=== PATIENT | male | born 2000 | race Caucasian/White ===

== ENCOUNTER 2020-07-02 16:29 | Outpatient (CLI) | payer OTHER | END 2020-07-02 16:30 | disposition home or self-care (01) | LOC: BICRAD 16:29 | PROVIDERS: ATTEND Specialist | DX: S99.921A Unspecified injury of right foot, initial encounter (principal) ==

== ENCOUNTER 2020-08-19 08:40 | Outpatient (CLI) | payer OTHER | END 2020-08-19 08:41 | disposition home or self-care (01) | LOC: BICRAD 08:40 | PROVIDERS: ATTEND Specialist | DX: R05 Cough (principal); R09.1 Pleurisy; M41.85 Other forms of scoliosis, thoracolumbar region | CPT/HCPCS: 71046 ==